=== PATIENT | female | born 1995 | race Caucasian/White ===

== ENCOUNTER 2019-07-27 14:41 | Emergency (ER) | payer OTHER ==
--- OUTSIDE RECORDS SUMMARY | 2019-07-27 14:50 | XMS REPORT | Continuity of Care Document ---
:1995 External Reference #:[id number] Author Name Baldo Oneill CNM Address [address] [place] [id number] Problems Active Problems Provider Date H/O: section Baldo Oneill CNM Onset: 07/27/2019 Multigravida Baldo Oneill CNM Onset: 07/27/2019 Varicose veins of lower extremity Baldo Oneill CNM Onset: 07/27/2019 Social History Type Date Description Comments Sex Unknown Tobacco Use Start: Unknown Never Smoked Cigarettes ETOH Use Does Not Drink Alcohol Recreational Drug Use Does Not Use Drugs Tobacco Use Start: Unknown Patient has never smoked Smoking Status Reviewed: 07/27/19 Patient has never smoked Allergies, Adverse Reactions, Alerts Description No Known Drug Allergies Medications Active Medications SIG Qnty Indications Ordering Provider Date Breast Pump double electric 1units Z39.1 Vani Lobo 07/25/2019 Misc breast pump for PRESLEY Carney lactating mother Dha 1 by mouth every Unknown 200mg day, ok to use Capsules 200-400mg dha History Medications Breast Pump double electric 1units Z39.1 Vani Lobo 04/20/2019 - breast pump for PRESLEY Carney 07/25/2019 Misc lactating mother Medications Administered in Office Medication SIG Qnty Indications Ordering Provider Date PT SCRN Tbco Id as Non User Baldo Oneill CNM 07/27/2019 Injection Immunizations Description No Information Available Vital Signs Date Vital Result Comment 07/27/2019 1:49pm BP Systolic 116 mmHg BP Diastolic 60 mmHg Heart Rate 72 /min Respiratory Rate 16 /min Height 67 inches 5'7" Weight 217.00 lb BMI (Body Mass Index) 34.0 kg/m2 Last Menstrual Period [id number] 04/20/2019 12:54pm BP Systolic 118 mmHg BP Diastolic 72 mmHg Height 67 inches 5'7" Weight 200.00 lb BMI (Body Mass Index) 31.3 kg/m2 2 Parity 1 Results Test Acquired Date Facility Test Result H/L Range Note PNL No 05/18/2019 [facility] Rubella Screen Equivocal Immune 1 [place] [address] [phone] Hemoglobin A1c 5.0 % Normal 4.0-5.6 2 Hepatitis B Surface Ag Nonreactive Nonreactive 3 Syphillis Igg W/Reflex RPR Negative Negative 4 CBC With No 05/18/2019 [facility] White Blood 11.2 10^3/uL High 3.5-10.8 [place] [address] Count [phone] Red Blood Count 4.12 10^6/uL Normal 3.70-4.87 Hemoglobin 12.3 g/dL Normal 12.0-16.0 Hematocrit 37 % Normal 35-47 Mean Corpuscular Volume 90 fL Normal 80-97 Mean Corpuscular Hemoglobin 30 pg Normal 27-31 Mean Corpuscular HGB Conc 33 g/dL Normal 31-36 Red Cell Distribution Width 14 % Normal 10-15 Platelet Count 330 10^3/uL Normal 150-450 Mean Platelet Volume 9.2 fL Normal 7.4-10.4 Type And Screen 05/18/2019 [facility] Patient [place] [address] [phone] Antibody Screen NEGATIVE Lead 05/18/2019 [facility] Lead,Venous, B < 1.0 g/dL 0.0- 4.9 5 [place] [address] [phone] Venous/Capillary Venous Submitting Laboratory Phone [phone] HIV 1&2 p24 05/18/2019 [facility] HIV 4th [place] [address] Generation [phone] Varicella 05/18/2019 [facility] Varicella-Zost Negative 7 [place] [address] er IgG [phone] Antibody Varicella IgG Antibody Index 0.8 8 GC/Chlamydia Dna 05/18/2019 [facility] GCCHL Disclaimer (SEE NOTE) 9 [place] [address] [phone] Chlamydia trachomatis Nunu Negative Negative Neisseria gonorrhoeae (GC) Nunu Negative Negative Drug Screen 05/18/2019 [facility] Urine None Detected None [place] [address] Hydrocodone [facility] [phone] Screen Urine Oxycodone Screen None Detected None Detect Urine Fentanyl Screen None Detected None Detect Urine Methadone Screen None Detected None Detect Urine Buprenorphine Screen None Detected None Detect Urine Amphetamine Screen None Detected None Detect Urine Barbiturates Screen None Detected None Detect Urine Benzodiazepine Screen None Detected None Detect Urine Cannabinoids Screen None Detected None Detect Urine Cocaine Screen None Detected None Detect Urine Opiates Screen None Detected None Detect Urine Phencyclidine Screen None Detected None Detect 10 Urine Culture And 04/20/2019 [facility] Urine Culture SEE RESULT 11 [place] [address] [facility] [phone] 1 [id number] 2 Therapeutic target for the treatment of diabetes mellitus patients is <7% HBA1C, and in selective patients <6.0%. Please refer to [place] [employer] diabetic care guidelines for further information. 3 [id number] 4 [id number] 5 ADDITIONAL INFORMATION Testing performed by Inductively Coupled Plasma-Mass Spectrometry (ICP-MS). This test was developed and its performance characteristics determined by [facility] in a manner consistent with CLIA requirements. This test has not been cleared or approved by the U.S. Food and Drug Administration. 6 Test Performed by: [facility] [place] [address] [employer]: Marin Amezcua M.D. Ph.D.; CLIA# [id number] 7 REFERENCE VALUE Vaccinated: Positive (>=1.1 AI) Unvaccinated: Negative (<=0.8 AI) 8 Test Performed by: [place] [address] [employer]: Marin Amezcua M.D. Ph.D.; CLIA# [id number] 9 As with all diagnostic procedures, the laboratory results obtained should be used in conjunction with other clinical information available to the physician, including confirmation by another method, as applicable. 10 The specimen was tested at the listed cutoffs: Drug Class Test level (ng/mL) Hydrocodone 300 Oxycodone 100 Fentanyl 1 Methadone 150 Buprenorphine 5 Amphetamines 500 Barbiturates 200 Benzodiazepines 200 Cocaine 150 Cannabinoids 50 Opiates 300 PCP 25 Specimen was received without chain of custody. Results should be used for medical purposes only. 11 SEE RESULT BELOW Name: MARLEY QUIÑONES : [address]: Kristen Rodriguez [facility] Acct: [id number] Unit: [id number] AGE: 23 Location: [facility] Re04/20/19 SEX: F Status: REG REF SPEC: [id number] CARLOS: 04/20/19-[address] [facility] [address]: Kristen Rodriguez CNM REQ: [id number] RECD: 04/20/19 STATUS:COMP _ SOURCE: URINE SPDESC: ORDERED: Urine Culture COMMENTS: [id number] Urine Source: Random Procedure Result Reported Site Urine Culture Final 04/22/19943 ML No growth of clinically significant organisms * ML - Main Lab . END OF REPORT DEPARTMENT OF PATHOLOGY, [address] [place] [address] Quinn Valdes M.D. Director [facility] # [id number] Procedures Date Code Description Status 06/20/2019 20537 Echography Uterus Complete Completed 04/19/2019 40163 OB Ultrasound First Trimester Completed 04/19/2019 91592 OB Ultrasound First Trimester Completed Medical Devices Description No Information Available Encounters Type Date Location Provider Dx Diagnosis Office Visit 07/27/2019 [facility] Baldo Oneill CNM I83.011 Varicose veins of 1:45p right lower extremity with ulcer of thigh I83.018 Varicose veins of r low extrem w ulcer oth part of lower leg O34.211 Matern care for low transverse scar from prev del Assessments Date Code Description Provider 07/27/2019 I83.011 Varicose veins of right lower extremity Baldo Oneill CNM with ulcer of thigh 07/27/2019 I83.018 Varicose veins of right lower extremity Baldo Oneill CNM with ulcer other part of lower leg 07/27/2019 O34.211 Maternal care for low transverse scar Baldo Oneill CNM from previous delivery 07/25/2019 Z34.82 Encounter for supervision of other normal Vani Carney, [facility] , second trimester 06/20/2019 Z36.3 Encounter for screening for Pam Rae MD malformations 06/20/2019 Z34.82 Encounter for supervision of other normal Denisha Barry, [facility] , second trimester 06/20/2019 Z36.3 Encounter for screening for Ultrasounds malformations 05/18/2019 Z36.9 Encounter for screening, Garrison King M.D. unspecified 05/18/2019 Z36.9 Encounter for screening, Laboratory unspecified 05/18/2019 Z34.82 Encounter for supervision of other normal Abramjoseph Ariza, [facility] , second trimester 04/20/2019 Z34.81 Encounter for supervision of other normal Kristen Michael , [facility] , first trimester 04/19/2019 O26.91 related conditions, Phyllis Ozuna MD unspecified, first trimester 04/19/2019 O26.91 related conditions, Ultrasounds unspecified, first trimester Plan of Treatment Future Appointment(s):08/30/2019 3:00 pm - Phyllis Ozuna MD at [facility]08/17/2019 3:30 pm - Baldo Oneill CNM at [facility] Glqjmp3208/17/2019 2:30 pm - Laboratory at [facility]07/27/2019 - RYDER AlexandraMI83.011 Varicose veins of right lower extremity with ulcer of thighNew Xrays:Ultrasound,Venous Doppler Studies,Unilateral Right, Ordered: 07/27/19Comments:I have ordered an ultrasound study of your leg to rule out a blood clot. We will follow-up with you based on the yrsnlrX69.018 Varicose veins of right lower extremity with ulcer other part of lower legNew Xrays:Ultrasound,Venous Doppler Studies, Unilateral Right, Ordered: 07/27/19Comments:I have ordered an ultrasound study of your leg to rule out a blood clot. We will follow-up with you based on the ihcrxvX63.211 Maternal care for low transverse scar from previous deliveryComments:Follow-up as scheduled for routine OB care Functional Status Description No Information Available Mental Status Description No Information Available Referrals Description No Information Available
[2019-07-27 15:09] VITALS: BP 107/72
--- NOTE | 2019-07-27 16:41 | UC ---
UC General HPI - HPI Summary HPI Summary: Patient is a 23-year-old female presenting with concern for DVT. Patient states her OB sent her here after she called with concern for her varicose veins "feeling warm this morning." Denies erythema. Denies bleeding. Denies edema. Patient states she has had varicose veins since being . Has never had a DVT or blood clot elsewhere in the past. States the warm feeling has since dissipated and "really only happens when she stands for too long." - History of Current Complaint Chief Complaint: UCLowerExtremity Stated Complaint: POSS DVT Hx Obtained From: Patient Pain Intensity: 3 - Allergy/Home Medications Allergies/Adverse Reactions: Allergies Allergy/AdvReac Type Severity Reaction Status Date / Time No Known Allergies Allergy Verified 07/27/19 15:03 Home Medications: Home Medications Pnv No.95/Ferrous Fum/Folic AC [ Tablet] 1 tab DAILY 07/27/19 [History Confirmed 07/27/19] PMH/Surg Hx/FS Hx/Imm Hx Previously Healthy: Yes - Surgical History Surgical History: Yes Surgery Procedure, Year, and Place: . Tonsil - Family History Known Family History: Positive: Non-Contributory - Social History Alcohol Use: None Substance Use Type: None Smoking Status (MU): Never Smoked Tobacco Review of Systems All Other Systems Reviewed And Are Negative: No Constitutional: Positive: Negative Skin: Positive: Other - "warm feeling of varicose veins" Respiratory: Positive: Negative. Negative: Shortness Of Breath Cardiovascular: Positive: Negative. Negative: Palpitations, Chest Pain Gastrointestinal: Positive: Negative Neurovascular: Positive: Negative Musculoskeletal: Positive: Negative Physical Exam - Summary Physical Exam Summary: Vital Signs Reviewed: Yes A+Ox3, no distress Eyes: Conjunctiva Clear ENT: Hearing grossly normal Neck: Positive: Supple Respiratory: Positive: No respiratory distress, No accessory muscle use + CTA throughout no w/r Cardiovascular: RRR nl s1, s2 no m/r CBT <2 sec Musculoskeletal Exam: JARAMILLO x 4 without difficulty, no edema, ROM intact, negative elijah's sign Neurological: Positive: Alert, sensation grossly intact Psychological: Positive: age appropriate behavior Skin: Positive: superficial varicose veins noted of right lower extremity, no erythema or warmth appreciated, no TTP, no bleeding, no rash, no ecchymosis Vital Signs: Initial Vital Signs Temp 97.6 F 07/27/19 15:04 Pulse 88 07/27/19 15:04 Resp 16 07/27/19 15:04 BP 107/72 07/27/19 15:04 Pulse Ox 98 07/27/19 15:04 Diagnostics - Radiology vein LE Radiology Interpretation Completed By: Radiologist Summary of Radiographic Findings: IMPRESSION: NO RIGHT LOWER EXTREMITY DEEP VEIN THROMBOSIS. SUBCUTANEOUS VARICOSITIES ALONG THE RIGHT KNEE Course/Dx - Course Course Of Treatment: Discussed the negative ultrasound with patient. Educated on varicose veins and signs and symptoms of DVTs. Instructed to follow up with PCP if varicose veins continued to bother her. Patient voiced understanding and agreed with plan. - Diagnoses Provider Diagnosis: Varicose veins of right lower extremity, Encounter for assessment for deep vein thrombosis (DVT) Discharge ED - Sign-Out/Discharge Documenting (check all that apply): Patient Departure All imaging exams completed and their final reports reviewed: Yes - Discharge Plan Condition: Stable Disposition: HOME Referrals: [facility] REFERRAL [Outside] - If Needed Additional Instructions: As discussed, your ultrasound was negative for a DVT today. You may apply cold compresses to the areas if needed. Follow up with the physician referral if your varicose veins continue to bother you. Return if you notice any redness, swelling, or bleeding from the area. - Billing Disposition and Condition Condition: STABLE Disposition: Home
== END 2019-07-27 17:02 | disposition home or self-care (01) ==
LOC: UCEAST 14:41
DX: Z13.6 Encounter for screening for cardiovascular disorders (principal); I83.91 Asymptomatic varicose veins of right lower extremity
CPT/HCPCS: 99211; G0463

== ENCOUNTER 2019-10-31 08:08 | Inpatient (IN) ==
[2019-10-31 08:43] LABS: ABS Eosinophils 0.1 10^3/ul (0-0.6); ABS Lymphocytes 2.9 10^3/ul (1.0-4.8); ABS Monocytes 0.7 10^3/ul (0-0.8); Eosinophil % 0.8 %; Hematocrit 35 % (35-47); Hemoglobin 12.1 g/dL (12.0-16.0); Lymphocyte % 29.7 %; Mean Corpuscular HGB Conc 34 g/dL (31-36); Mean Corpuscular Hemoglobin 30 pg (27-31); Mean Corpuscular Volume 89 fL (80-97); Mean Platelet Volume 8.2 fL (7.4-10.4); Platelet Count 271 10^3/uL (150-450); Red Blood Count 3.99 10^6 /uL (3.70-4.87); Red Cell Distribution Width 15 % (10-15); White Blood Count 9.7 10^3/uL (3.5-10.8)
[2019-10-31] MEDS ORDERED: Sodium Citrate/Citric Acid LIQ 15 ML UDC ONE (10:20)
[2019-10-31] MEDS ORDERED: Morphine PF AMP (0.5MG/ML) 5 MG/10 ML AMP ONE (10:43)
[2019-10-31] MEDS ORDERED: Oxytocin 10 UNITS/ML 1 ML VIAL ONE (10:43)
[2019-10-31] MEDS ORDERED: Phenylephrine 40 mcg/mL 10mL (400mcg) SYRINGE ONE (10:43)
[2019-10-31] MEDS ORDERED: Ondansetron 4 mg VIAL 2 MG/ML 2 ml VIAL ONE (10:48)
[2019-10-31] MEDS ORDERED: Sodium Citrate/Citric Acid LIQ 15 ML UDC PO ONE (10:49)
[2019-10-31] MEDS ORDERED: Naloxone 0.4 mg VIAL 0.4 mg/ml 1 ml VIAL IV PRN ×2 (10:50→10:52)
[2019-10-31] MEDS ORDERED: fentaNYL 100 mcg/2 ml 50 MCG/ML VIAL IV PRN (10:50)
[2019-10-31] MEDS ORDERED: Ondansetron 4 mg VIAL 2 MG/ML 2 ml VIAL IV PRN ×2 (10:50→10:57)
[2019-10-31] MEDS ORDERED: diPHENhydraMINE IV 50 MG/ML 1 ml VIAL (BENADRYL) IV PRN (10:57)
[2019-10-31] MEDS ORDERED: oxyCODONE/Acetamin 5/325 mg TAB PO PRN (10:57)
[2019-10-31] MEDS ORDERED: Scopolamine PATCH Remove NOTE PATCH OFF PRN (10:57)
[2019-10-31] MEDS ORDERED: ceFOXitin 2 GM IVPREMIX (*) 2 GM/50 ML BAG IVPB ONE (11:00)
[2019-10-31] MEDS ORDERED: Lactated Ringers 1000 ml BAG 1,000 ML IV SCH ×2 (11:00→17:00)
[2019-10-31] MEDS: oxyCODONE/Acetamin 5/325 mg TAB PO PRN ×2 (15:49→19:58)
[2019-10-31] MEDS ORDERED: Dibucaine 1% OINT 28.35 GM TUBE PR PRN (16:18)
[2019-10-31] MEDS ORDERED: Glycerin ADULT 2.4 gm SUPP PR PRN (16:18)
[2019-10-31] MEDS ORDERED: Witch Hazel PAD JAR TOPICAL PRN (16:18)
[2019-10-31 19:41] LABS: Urine Benzodiazepine Screen None Detected (None Detect); Urine Opiates Screen None Detected (None Detect)
[2019-11-01 07:05] LABS: ABS Eosinophils 0.1 10^3/ul (0-0.6); ABS Lymphocytes 2.8 10^3/ul (1.0-4.8); ABS Monocytes 0.8 10^3/ul (0-0.8); Eosinophil % 0.8 %; Hematocrit 32 % (35-47); Hemoglobin 10.8 g/dL (12.0-16.0); Lymphocyte % 23.2 %; Mean Corpuscular HGB Conc 34 g/dL (31-36); Mean Corpuscular Hemoglobin 30 pg (27-31); Mean Corpuscular Volume 89 fL (80-97); Mean Platelet Volume 8.1 fL (7.4-10.4); Platelet Count 214 10^3/uL (150-450); Red Blood Count 3.58 10^6 /uL (3.70-4.87); Red Cell Distribution Width 15 % (10-15); White Blood Count 11.9 10^3/uL (3.5-10.8)
[2019-11-01] MEDS: oxyCODONE/Acetamin 5/325 mg TAB PO PRN ×3 (08:00→22:59)
[2019-11-02 08:27] VITALS: BP 111/66
== END 2019-11-02 14:10 | disposition home or self-care (01) | DRG 540 ==
LOC: MCHOB 08:08
PROVIDERS: ADMIT Obstetrics & Gynecology; ATTEND Obstetrics & Gynecology